=== PATIENT | male | born 1980 | race African-American/Black ===

== ENCOUNTER 2018-01-15 07:38 | Emergency (ER) | payer OTHER ==
[~2018-01-15] VITALS: Ht 172.7 cm; Wt 104.3 kg
[2018-01-15 08:08] LABS: URINE BILIRUBIN NEGATIVE (Negative); URINE BLOOD NEGATIVE (Negative); URINE CLARITY CLEAR; URINE COLOR YELLOW; URINE GLUCOSE-RANDOM* NEGATIVE (Negative); URINE KETONES NEGATIVE (Negative); URINE LEUKOCYTES NEGATIVE (Negative); URINE NITRITE NEGATIVE (Negative); URINE PROTEIN (DIPSTICK) NEGATIVE (Negative); URINE UROBILINOGEN 0.2 E.U./dl (0.2-1.0)
[2018-01-15] MEDS ORDERED: CYCLOBENZAPRINE5 MG PO (08:20)
[2018-01-15] MEDS ORDERED: NORCO 5-325 TA1 EACH PO (08:20)
[2018-01-15] MEDS ORDERED: IBUPROFEN 800800 MG PO (08:20)
[2018-01-15 09:12] VITALS: BP 131/75
== END 2018-01-15 09:12 | disposition home or self-care (01) ==
LOC: ER 07:38
PROVIDERS: Emergency Medicine
DX: M54.5 Low back pain (principal)

== ENCOUNTER 2018-09-27 17:06 | Emergency (ER) | payer OTHER ==
[~2018-09-27] VITALS: Ht 177.8 cm; Wt 101.6 kg
[~2018-09-27 17:06] MED LIST: CYCLOBENZAPRINE5 MG PO; IBUPROFEN 800800 MG PO; NORCO 5-325 TA1 EACH PO
[2018-09-27] MEDS ORDERED: NAPROSYN500 MG PO (19:31)
[2018-09-27 20:07] VITALS: BP 142/89
== END 2018-09-27 20:14 | disposition home or self-care (01) ==
LOC: ER 17:06
DX: S83.8X2A Sprain of other specified parts of left knee, initial encounter (principal); S93.492A Sprain of other ligament of left ankle, initial encounter; S90.32XA Contusion of left foot, initial encounter; W22.8XXA Striking against or struck by other objects, initial encounter; Y92.89 Other specified places as the place of occurrence of the external cause; Y99.0 Civilian activity done for income or pay; Y99.8 Other external cause status